=== PATIENT | female | born 1990 | race Caucasian/White ===

== ENCOUNTER 2016-09-10 22:32 | Inpatient (IN) | payer OTHER ==
[~2016-09-10] VITALS: Ht 162.6 cm; Wt 102.9 kg
[~2016-09-10 22:32] MED LIST: FLUO-138 PO; OMEP40CA52 PO; SUCR1TAB PO
[2016-09-10] MEDS ORDERED: MAG-AL + SIM LIQUID 30 ML UDC PO PRN (22:45)
[2016-09-10] MEDS ORDERED: ACETAMINOPHEN 500 MG TABLET PO PRN (22:45)
[2016-09-10] MEDS ORDERED: CALCIUM CARBONATE 500mg Chewable TAB PO PRN (22:45)
[2016-09-10] MEDS ORDERED: LIDOCAINE 1% (10mg/ml) 2ml SDV ID PRN (22:45)
[2016-09-10 23:04] LABS: HCT - HEMATOCRIT 34.2 % (36-46); MEAN CORPUSCULAR HGB 25.3 UUG (26-34); MEAN CORPUSCULAR HGB CONC(MCHC 32.2 GM/DL (31-37); MEAN CORPUSCULAR VOLUME 78.8 UM3 (80-100); MEAN PLATELET VOLUME 10.1 UM3 (9.4-12.4); RED BLOOD COUNT 4.34 M/MM3 (4.00-5.20); WBC - WHITE BLOOD COUNT 8.2 T/MM3 (4.5-11.0)
[2016-09-10] MEDS: LR 1,000 ML IV PRN (23:04)
[2016-09-10 23:16] VITALS: BP 117/80; PULSE 109; RESP 18; TEMP 98.7; O2SAT 100
--- NOTE | 2016-09-11 00:20 | ANESOB ---
Epidural/ Date/Time DATE: 09/11/16 TIME: 00:16 Preop Diagnosis , SROM at 2155 Procedure: Labor Epidural Plan: Epidural Height: 5 ' 4.00 " Weight: 126.000 kg BMI: kg/m2 NPO since: 2129 P:0 Heart Rate: 140 Medications & Allergies Inpatient Medications Current Medications Medications (Trade) Dose Ordered Sig/Antonia Start Time Stop Time Status Last Admin Dose Admin Lidocaine HCl 0.2 mg 0.2 mg PRN PRN 09/10/16 22:45 UNV Lactated Ringer's (Lactated Ringers) 1,000 ml @ 0 mls/hr Q0M PRN 09/10/16 22:39 UNV 09/10/16 23:04 500 MLS/HR Acetaminophen (Tylenol Extra Strength) 1-2 TABS = 500-1,000 MG Q4H PRN 09/10/16 22:45 UNV Al Hydroxide/Mg Hydroxide (Maalox) 30 ml Q4H PRN 09/10/16 22:45 UNV Calcium Carbonate (TUMS Regular Strength) 1-2 TABS Q2H PRN 09/10/16 22:45 UNV Omeprazole (Omeprazole) 40 Mg Capsule.dr, 1 CAP PO DAILY, (Reported) Last Taken: on 09/10/16 1230 Sucralfate (Sucralfate) 1 Gm Tablet, 1 TAB PO QID, (Reported) Last Taken: on 09/10/16 1230 Discontinued Medications Fluoxetine HCl (Fluoxetine HCl) 20 Mg Capsule, 1 CAP PO DAILY, (Reported) Coded Allergies: No Known Drug Allergies (Verified Allergy, Unknown, 03/09/12) Medical/Surgical History Anesthesia PMH: Reports: *Angina, Headaches (OCCAS, NON MIGRAINE), Obesity ( morbidly), Reflux (with ), Seizures (PSEUDO SEIZURE HISTORY RELATED TO STRESS) Smoking Status: Never smoker Does patient use chewing tobac: No Second Hand Exposure: No Substance Use Type: does not use Alcohol Intake: none Anesthesia Adverse Reactions: FOUND none Hx of Motion Sickness: No Complications During : No Pertinent Findings Laboratory Tests 09/10/16 22:57 Physical Exam Respiratory: Bilat breath sounds equal, Lungs clear Cardiovascular: Regular rate, rhythm Airway Assessment Mallampati Score: II TMD: 3 Fingerbreadths Neck Extension: Good Overall Assessment: No Airway Concerns ASA: 3 Discussion Discussed risks/options/alternatives of anesthesia. Patient consents. Nursing pain assessment noted. Present for Discussion: Present: Family Member Attestation Statement Prior to the delivery of any anesthetic medication, I examined the patient, developed the plan, obtained the patient's consent and discussed the risk and benefits of the procedure with the patient/guardian. If the note happens to be signed after anesthesia start time, it is only due to providing efficient care of the patient and documenting at a time when the computer is available. KEN [employer] Sep 11, 2016 00:19
[2016-09-11] MEDS ORDERED: ROPIVACAINE 1% 200 MG, SUFENTANIL 50 MCG in NORMAL SALINE 80 ML EPI PRN (00:30)
[2016-09-11] MEDS ORDERED: NALOXONE 0.4mg/ml INJECTION IV PRN (00:30)
[2016-09-11] MEDS ORDERED: DiphenhydrAMINE 50 MG/ML INJECTION IV PRN (00:30)
[2016-09-11] MEDS ORDERED: ONDANSETRON 4mg/2ml INJECTION IV PRN (00:30)
[2016-09-11] MEDS: LR 1,000 ML IV PRN ×2 (00:59→04:28)
[2016-09-11] MEDS ORDERED: OXYTOCIN 30 UNIT in D5LR 500 ML SCH (01:00)
[2016-09-11] MEDS ORDERED: D5LR 1,000 ML IV PRN (01:00)
[2016-09-11] MEDS ORDERED: OXYTOCIN 30 UNIT in D5W 500 ML IV ONE (07:07)
[2016-09-11] MEDS ORDERED: ACETAMINOPHEN 500 MG TABLET PO PRN (07:15)
[2016-09-11] MEDS ORDERED: MAG-AL + SIM LIQUID 30 ML UDC PO PRN (07:15)
[2016-09-11] MEDS ORDERED: PHENYLEPHRINE RECTAL SUPPOSITORY RECTALLY PRN (07:15)
[2016-09-11] MEDS ORDERED: DiphenhydrAMINE 25 MG CAPSULE PO PRN (07:15)
[2016-09-11] MEDS ORDERED: MILK OF MAGNESIA 30 ML SUSP PO PRN (07:15)
[2016-09-11] MEDS ORDERED: HYDROCORTISONE 2.5% CREAM 30 GM RECTALLY PRN (07:15)
[2016-09-11] MEDS ORDERED: CALCIUM CARBONATE 500mg Chewable TAB PO PRN (07:15)
--- NOTE | 2016-09-11 07:29 | LDNFPDOC ---
Delivery Note Date of Delivery 09/11/16 Diagnosis: : 2 Para: 0 Rubella: Immune GBS Status: Negative Weeks: 38 Days: 3 Sex and Viability: Viable Male APGARS: [place] Name: Marek Mclaughlin Weight: 3545 grams Estimated Blood Loss: 400 cc Brief Description Patient is a 26 year old, 2, para 0 who presented to labor and delivery at 38 weeks 3 days with spontaneous rupture of membranes on 09/10/16 at 2230 ( with return of clear fluid). thus far has been uncomplicated. Upon admission, patient was noted to already be dilated to 3 centimeters and had some mild irregular contractions. We first proceeded with expectant management but as cervical was unchanged 2 hours later, Pitocin per procotol was started for augmentation of labor. An epidural was placed approximately an hour later for labor analgesia. Patient progressed to complete dilation within 5 hours. No other complication noted, heart rate tracing at this point was category 1 , reactive and reassuring. Patient remained in the labor room, was prepped and draped in the usual sterile fashion. After patient pushed for 45 minutes with good effort, the infant delivered spontaneously over a second degree laceration. The infant was placed on the patient's abdomen for [id number] after he was noted to have a good vigorous cry, mouth and nares were suctioned. The cord was clamped and cut after a delay of almost 2 minutes, and the placenta subsequently spontaneously delivered without difficulty 15 minutes after. The second degree perineal laceration was repaired in the usual fashion ( 2 layers of running lock stitch) using both 2-0 and 3-0 vicryl sutures. A vaginal sweep was then performed. Hemostasis was noted. No complications. No atony. Infant and mother are doing well at this time. FELICIA RAMOS MD Sep 11, 2016 07:07
[2016-09-11] MEDS: IBUPROFEN 800 MG TABLET PO PRN ×2 (08:59→18:15)
[2016-09-11] MEDS: DOCUSATE CALCIUM 240 MG CAPSULE PO SCH (09:00)
--- NOTE | 2016-09-11 10:15 | NUR ---
Epidural Epidural catheter removed without complications, tip intact, no S/S of infection noted. Area cleansed with alcohol, betadine and covered with a bandaid. Pt. educated about S/S of infection and to call doctor with concerns.
[2016-09-11 11:15] VITALS: BP 106/62; PULSE 82; RESP 18; O2SAT 99
--- NOTE | 2016-09-11 13:03 | ANESPO ---
Post-Op Note Date 09/11/16 Time: 13:03 Status Pt Participated in Evaluation: Pt participated in person Vital Signs Date Time Temp Pulse Resp B/P Pulse Ox O2 Delivery O2 Flow Rate FiO2 09/10/16 23:16 98.7 109 18 117/80 100 Room Air Respiratory Function: Airway patent Cardiovascular Function: Regular pulse Telemetry Pattern: SR Mental Status: Alert/oriented Pain Level Intensity: 0 Hydration: Taking po fluids Complications during Recovery None apparent Follow-Up Instructions Instructions Per Surgeon CHERRIE WALLS CRNA Sep 11, 2016 13:03
[2016-09-11] MEDS: HYDROCODONE/APAP 5 mg/325 mg TABLET PO PRN ×2 (14:04→18:15)
--- NOTE | 2016-09-11 15:00 | NUR ---
Shift summary Patient has up and about in room without dizziness. Voiding without difficulty. Fundus firm at umbilicus. Small amount lochia rubra. Is bottlefeeding baby. Watched baby bath with . IVL. Tolerating regular diet.
[2016-09-11 15:15] VITALS: BP 104/63; PULSE 82; RESP 18; TEMP 97.6
[2016-09-11 23:20] VITALS: BP 106/53; PULSE 99; RESP 16; TEMP 97.9
[2016-09-12] MEDS: HYDROCODONE/APAP 5 mg/325 mg TABLET PO PRN ×2 (00:22→08:49)
--- NOTE | 2016-09-12 02:40 | NUR ---
Chart Check 24 hour chart check completed
--- NOTE | 2016-09-12 02:41 | NUR ---
SHIFT SUMMARY: VSS, pt's pain controlled with PO Motrin and Saxon 5. Fundus firm at 2 below umbilicus, light lochia noted. IV dc'd, pt has been up to shower. Pt up ad amos, voiding and performing own personal cares. General diet tolerated. Bonding and providing all of baby's cares. Alexei in room and supportive.
[2016-09-12] MEDS: IBUPROFEN 800 MG TABLET PO PRN (03:30)
[2016-09-12 05:40] LABS: HCT - HEMATOCRIT 27.2 % (36-46); HGB - HEMOGLOBIN 8.3 GM/DL (12-16); MEAN CORPUSCULAR HGB 24.9 UUG (26-34); MEAN CORPUSCULAR HGB CONC(MCHC 30.5 GM/DL (31-37); MEAN CORPUSCULAR VOLUME 81.7 UM3 (80-100); MEAN PLATELET VOLUME 10.3 UM3 (9.4-12.4); RED BLOOD COUNT 3.33 M/MM3 (4.00-5.20)
[2016-09-12 07:08] VITALS: BP 96/56; PULSE 100; RESP 16; TEMP 97.9
[2016-09-12] MEDS: DOCUSATE CALCIUM 240 MG CAPSULE PO SCH (08:49)
[2016-09-12] MEDS ORDERED: IRON POLYSACCHARIDES COMPLEX 150 MG CAPSULE PO SCH (09:00)
--- NOTE | 2016-09-12 09:23 | PNPDOC ---
Progress Note PPD1 Weeks: 38 Days: 3 Rubella: Immune GBS: Negative Blood Type:O pos Subjective 09/12/16 Lochia: Minimal Pain: Controlled Voiding: Voiding No dizziness or SOA. Objective Vital Signs Date Time Temp Pulse Resp B/P Pulse Ox O2 Delivery O2 Flow Rate FiO2 09/12/16 07:08 97.9 100 16 96/56 Room Air 09/11/16 11:15 99 Urine Output: Good General: Alert and Oriented Abdomen: Fundus Firm, Non-tender Extremities: Non-tender Laboratory Item Value Date Time Hemoglobin 8.3 GM/DL L # 09/12/16 0435 Assessment (1) (spontaneous vaginal delivery) Plan: Routine Care, Discharge Home, Continue PNV (2) Acute blood loss anemia Plan: Iron EDELMIRA BUENO MD Sep 12, 2016 09:23
[2016-09-12] MEDS ORDERED: IBUP-1547 PO (09:27)
[2016-09-12] MEDS ORDERED: IRON150C5 PO (09:27)
[2016-09-12] MEDS ORDERED: HYDR-4246 PO (09:27)
--- NOTE | 2016-09-12 12:17 | NUR ---
SHIFT SUMMARY VSS. FIRM FUNDUS, -2. LIGHT LOCHIA. PAIN CONTROLLED WITH ORAL PAIN MEDS, IBUPROFEN 800MG AND NORCO 5/325MG. REPEAT HEMAGRAM THIS MORNING, HGB 8.3 FROM 11.0, PER START A DAILY IRON TABLET. MOM PROVIDED ALL CARE FOR BABY. DISCHARGED HOME.
== END 2016-09-12 11:51 | disposition home or self-care (01) | DRG 775 ==
LOC: OBOBS 22:32 → MC 22:32 → OBOBS 22:40 → EDSTATUS 09-21 22:35
PROVIDERS: ADMIT Obstetrics & Gynecology; ATTEND Obstetrics & Gynecology
PROC: 10E0XZZ Delivery of Products of Conception, External Approach (ICD-10-PCS; principal; 2016-09-11)
PROC: 0KQM0ZZ Repair Perineum Muscle, Open Approach (ICD-10-PCS; 2016-09-11)
DX: O32.8XX0 Maternal care for other malpresentation of fetus, not applicable or unspecified (principal); D62 Acute posthemorrhagic anemia; O70.1 Second degree perineal laceration during delivery; O99.344 Other mental disorders complicating childbirth; F32.9 Major depressive disorder, single episode, unspecified; O99.02 Anemia complicating childbirth; Z3A.38 38 weeks gestation of pregnancy; Z37.0 Single live birth
CPT/HCPCS: 36415; 85027; 86850; 86900; 86901